=== PATIENT | male | born 1980 | race African-American/Black ===

== ENCOUNTER 2021-06-12 12:44 | Emergency (ER) | payer MEDICAID ==
[~2021-06-12] VITALS: Ht 190.5 cm; Wt 109.0 kg
[2021-06-12 12:47] VITALS: BP 142/97
== END 2021-06-12 15:27 | disposition left against medical advice (07) ==
LOC: ER 12:44
DX: Z53.21 Procedure and treatment not carried out due to patient leaving prior to being seen by health care provider (principal)
CPT/HCPCS: 99281